=== PATIENT | male | born 1990 | race African-American/Black ===

== ENCOUNTER 2017-01-25 09:38 | Emergency (ER) | payer SELFPAY ==
[~2017-01-25] VITALS: Ht 172.7 cm; Wt 125.0 kg
[~2017-01-25 09:38] MED LIST: AMOXICILLIN 50500 MG PO
[2017-01-25 09:45] VITALS: TEMP 98.6
[2017-01-25] MEDS ORDERED: ZOFRAN8 MG PO (10:15)
[2017-01-25] MEDS ORDERED: ULTRAM 50MG TAB50 MG PO (10:15)
[2017-01-25 10:52] LABS: ADJUSTED CALCIUM 8.9 mg/dL (8.4-10.2); ALBUMIN 4.2 gm/dL (3.5-5.0); CALCIUM 9.1 mg/dL (8.4-10.2); CREATININE, serum 0.82 mg/dL (0.66-1.25); POTASSIUM 3.5 mmol/L (3.4-5.0); TOTAL PROTEIN 7.4 gm/dL (6.4-8.2)
[2017-01-25 11:13] VITALS: BP 130/79
[2017-01-25 11:26] VITALS: PULSE 79
== END 2017-01-25 11:25 | disposition home or self-care (01) ==
LOC: COL.ER 09:38
PROVIDERS: Emergency Medicine
DX: E86.0 Dehydration (principal); R10.13 Epigastric pain; R11.2 Nausea with vomiting, unspecified; R19.7 Diarrhea, unspecified; J06.9 Acute upper respiratory infection, unspecified; B34.9 Viral infection, unspecified; F17.210 Nicotine dependence, cigarettes, uncomplicated; R63.0 Anorexia
CPT/HCPCS: J1170; J1885; J2405; J7030

== ENCOUNTER 2017-02-08 04:36 | Emergency (ER) | payer SELFPAY ==
[~2017-02-08] VITALS: Ht 172.7 cm; Wt 129.5 kg
[~2017-02-08 04:36] MED LIST changes: +ULTRAM 50MG TAB50 MG PO; +ZOFRAN8 MG PO
[2017-02-08 04:42] VITALS: TEMP 98.1
[2017-02-08 04:59] LABS: BASO # 0.1 (0.0-0.2); BASO % 0.5 % (0.0-2.0); EOS # 0.4 (0.0-0.7); EOS % 3.7 % (0-4.0); GRAN # 6.2 (1.4-6.5); GRAN % 59.1 % (42.2-75.2); HEMATOCRIT 44.2 % (42.0-52.0); LYMPH # 3.2 (1.2-3.4); LYMPH % 30.3 % (20.0-51.0); MEAN CELL VOLUME 83 fl (80.0-100.0); MEAN CORPUSCULAR HEMOGLOBIN 28 pg (27.0-31.0); MEAN CORPUSCULAR HGB CONC 34 g/dl (33.0-37.0); MONO # 0.6 (0.1-0.6); MONO % 6.1 % (1.7-9.3); PLATELET COUNT 270 K/mm3 (130-400); WHITE BLOOD COUNT 10.5 K/mm3 (4.8-10.8)
[2017-02-08 05:13] LABS: ADJUSTED CALCIUM 9.1 mg/dL (8.4-10.2); ALANINE AMINOTRANSFERASE 49 U/L (21-72); ALBUMIN 4.4 gm/dL (3.5-5.0); ALKALINE PHOSPHATASE 98 U/L (50-136); ANION GAP 14 mmol/L (7-16); BILIRUBIN,TOTAL 0.8 mg/dL (0.0-1.0); BLOOD UREA NITROGEN 11 mg/dL (9-20); CALCIUM 9.4 mg/dL (8.4-10.2); CARBON DIOXIDE 25 mmol/L (22-30); CHLORIDE 104 mmol/L (98-107); CREATININE, serum 0.79 mg/dL (0.66-1.25); GLUCOSE 95 mg/dL (74-106); LIPASE 90 U/L (23-300); POTASSIUM 3.8 mmol/L (3.4-5.0); SODIUM 142 mmol/L (137-145); TOTAL PROTEIN 7.5 gm/dL (6.4-8.2)
[2017-02-08 05:14] LABS: ACETAMINOPHEN < 10 ug/mL (10-30); ALCOHOL(ethanol),MEDICAL < 10 mg/dL; SALICYLATE < 1.0 mg/dL
[2017-02-08 05:33] LABS: AMPHETAMINE URINE NEGATIVE; BARBITURATES URINE NEGATIVE; BENZODIAZEPINES URINE NEGATIVE; BUPRENORPHINE URINE NEGATIVE; METHADONE URINE NEGATIVE; OPIATES URINE NEGATIVE; OXYCODONE URINE NEGATIVE; PHENCYCLIDINE URINE NEGATIVE; PROPOXYPHENE URINE NEGATIVE; THC CANNABINOIDS URINE POSITIVE; TRICYCLIC ANTIDEPRESS URINE NEGATIVE
[2017-02-08 05:50] LABS: ARTERIAL BLD GAS TCO2 CT 28.7; ARTERIAL BLOOD GAS BASE EXCESS 1.6 (-2-2); ARTERIAL BLOOD GAS HCO3 27.3 meq/L (22-26); ARTERIAL BLOOD GAS PO2 74.7 mmHg (80-100); ARTERIAL BLOOD GAS pH 7.39 (7.35-7.45); OXYHEMOGLOBIN 90.3 %
[2017-02-08 05:51] LABS: ALLEN TEST YES; ALLENS TEST RESULT PASS; ATS? YES
[2017-02-08 05:52] LABS: INR 1.1 (0.8-3.0); PROTHROMBIN TIME 12.4 SECONDS (9.7-12.8)
[2017-02-08 08:06] VITALS: BP 128/78; PULSE 70
== END 2017-02-08 08:06 | disposition home or self-care (01) ==
LOC: COL.ER 04:36
PROVIDERS: Emergency Medicine
DX: T39.392A Poisoning by other nonsteroidal anti-inflammatory drugs [NSAID], intentional self-harm, initial encounter (principal); R51 Headache; F17.210 Nicotine dependence, cigarettes, uncomplicated; Z98.890 Other specified postprocedural states